=== PATIENT | male | born 1955 | race Caucasian/White ===

== ENCOUNTER → 2023-11-24 06:47 | Outpatient (REF) | payer OTHER, SELFPAY | LOC: PAVMRI 06:47 | PROVIDERS: ATTENDING PHYSICIAN Student in an Organized Health Care Education/Training Program; FAMILY PHYSICIAN Family Medicine | DX: M25.511 Pain in right shoulder (principal) | CPT/HCPCS: 73221 ==

== ENCOUNTER → 2023-12-11 11:46 | Outpatient (REF) | payer OTHER, SELFPAY | LOC: HWRAD 11:46 | PROVIDERS: ATTENDING PHYSICIAN Family Medicine | DX: M79.601 Pain in right arm (principal); R63.4 Abnormal weight loss; Z87.891 Personal history of nicotine dependence | CPT/HCPCS: 71048; 73060 ==

== ENCOUNTER 2023-12-17 10:02 | Outpatient (RCR) | payer OTHER, SELFPAY | END 2023-12-17 23:59 | disposition home or self-care (01) | LOC: RPT 10:02 | PROVIDERS: ATTENDING PHYSICIAN Student in an Organized Health Care Education/Training Program | DX: M75.81 Other shoulder lesions, right shoulder (principal); M75.01 Adhesive capsulitis of right shoulder; Z73.6 Limitation of activities due to disability | CPT/HCPCS: 97010; 97110; 97162 ==

== ENCOUNTER 2023-12-22 12:56 | Outpatient (RCR) | payer OTHER, SELFPAY | END 2023-12-22 23:59 | disposition home or self-care (01) | LOC: RPT 12:56 | PROVIDERS: ATTENDING PHYSICIAN Student in an Organized Health Care Education/Training Program | DX: M75.81 Other shoulder lesions, right shoulder (principal); M75.01 Adhesive capsulitis of right shoulder; Z73.6 Limitation of activities due to disability; M25.511 Pain in right shoulder | CPT/HCPCS: 97010; 97110 ==

== ENCOUNTER → 2024-12-22 10:18 | Outpatient (REF) | payer OTHER, SELFPAY | LOC: HWRAD 10:18 | PROVIDERS: ATTENDING PHYSICIAN Family Medicine | DX: M25.512 Pain in left shoulder (principal) | CPT/HCPCS: 72040; 73030 ==

== ENCOUNTER → 2025-02-24 13:23 | Outpatient (REF) | payer OTHER, SELFPAY | LOC: RCS 13:23 | PROVIDERS: ATTENDING PHYSICIAN Internal Medicine Cardiovascular Disease; FAMILY PHYSICIAN Family Medicine | DX: I25.10 Atherosclerotic heart disease of native coronary artery without angina pectoris (principal) | CPT/HCPCS: 93017; 93350 ==

== ENCOUNTER → 2025-03-11 09:24 | Outpatient (REF) | payer OTHER, SELFPAY | LOC: RCS 09:24 | PROVIDERS: ATTENDING PHYSICIAN Internal Medicine Cardiovascular Disease; FAMILY PHYSICIAN Family Medicine | DX: I10 Essential (primary) hypertension (principal); I25.10 Atherosclerotic heart disease of native coronary artery without angina pectoris; I35.0 Nonrheumatic aortic (valve) stenosis | CPT/HCPCS: 93306 ==

== ENCOUNTER 2025-05-09 05:46 | Day surgery (SDC) | payer OTHER, SELFPAY ==
[2025-05-09 06:11] VITALS: BMI 22.2
[2025-05-09 06:12] VITALS: BMI 22.2
[2025-05-09 06:13] VITALS: BP 115/68
[2025-05-09] MEDS: TYLENOL 1000 MG PO (06:19)
[2025-05-09] MEDS: NORMOSOL-R/PLASMALYTE-A 1000 IV (06:27)
--- NOTE | 2025-05-09 06:53 | HP.FOC2 ---
Focused History & Physical
Chief Complaint
HPI:
Chief Complaint: Bilateral inguinal hernias
HPI / Indication for Planned Procedure: Patient is a 69-year-old male with recent outpatient surgical evaluation confirming the presence of bilateral inguinal hernias, left more symptomatic than right. He presents today for scheduled operative
correction.
Relevant Past Medical History: Other (Hypercholesterolemia, hypertension, CAD with history of [place]/stent placement, )
Relevant Family History: Negative
Relevant Past Surgical History: Positive for (Cardiac cath, cyst excision, colonoscopy)
Review of Systems
Review of Pertinent Systems: All Systems Negative
Medication
See Medication form for detailed medications: Yes
Medication List (including Herbals & OTC):
aspirin 81 mg tablet 81 mg PO DAILY 05/02/25
atorvastatin 40 mg tablet 40 mg PO QPM 05/02/25
lisinopril 10 mg tablet 10 mg PO DAILY 05/02/25
multivitamin 1 tab PO DAILY 05/02/25
Medications Reviewed: Yes
Allergies and Reactions
Patient has Allergies: No
Noted Allergies and Reactions:
Allergy/AdvReac Type Severity Reaction Status Date / Time
No Known Allergies Allergy Verified 05/09/25 06:09
Pertinent Physical Exam
All Other Systems: Negative
Head/Neck: Normal
Lungs: Normal
Heart: Normal
Abdomen: Other (Bilateral inguinal hernias left larger than right)
Extremities: Normal
Neurological: Normal
Diagnosis / Assessment
69-year-old male presenting for scheduled operative correction of bilateral inguinal hernias
Plan / Procedure
Robotic assisted laparoscopic repair of bilateral inguinal hernias with mesh
Anesthesia/Sedation to be done by Anesthesia Provider: Yes
--- NOTE | 2025-05-09 06:57 | W.SUR.PREOP ---
Pre-Operative Surgical Note
-
I have examined this patient prior to the performance of the scheduled procedure.
The patient's condition is unchanged from the time of the current History and
Physical and the patient is able to undergo the scheduled procedure.
--- NOTE | 2025-05-09 09:34 | W.IMMPOSTOP ---
Addendum entered and electronically signed by Nghia Estrada MD 05/09/25 09:43:
#[id number]
Original Note:
Surgical Immed Post Op Note
-
Primary Surgeon: Nghia Estrada MD
Assisting Surgeon: Tai Olivera
Pre-op Diagnosis: Bilateral inguinal hernias
Post-op Diagnosis: Bilateral inguinal hernias, reducible; direct
Procedure Performed: RAL JOHNNIE repair bilateral inguinal hernias with mesh; 3D max large mid weight
Anesthesia Type: GETA +0.25% Marcaine
Specimen / Cultures: None
Estimated Blood Loss: 6 mL
Complications: None immediate
Operative Findings: Bilateral direct inguinal hernias left larger than right. Small lipoma associated with left spermatic cord reduced and excised. 3D max large mid weight mesh repair x 2. No additional incidental findings.
[2025-05-09 09:45] VITALS: BP 115/68; BP 121/106; BP 124/64
[2025-05-09 10:00] VITALS: BP 123/70
[2025-05-09 10:20] VITALS: BP 122/66
[2025-05-09 10:35] VITALS: BP 130/65
[2025-05-09 11:05] VITALS: BP 128/60
== END 2025-05-09 11:20 | disposition home or self-care (01) ==
LOC: SDS 05:46
PROVIDERS: ATTENDING PHYSICIAN Surgery
DX: K40.20 Bilateral inguinal hernia, without obstruction or gangrene, not specified as recurrent (principal)
CPT/HCPCS: 49650; C1781